=== PATIENT | female | born 2000 | race African-American/Black ===

== ENCOUNTER 2021-05-22 10:10 | Emergency (ER) | payer MEDICAID ==
[~2021-05-22] VITALS: Ht 157.5 cm; Wt 65.9 kg
[2021-05-22 11:12] LABS: STREP SCREEN NEGATIVE
[2021-05-22] MEDS ORDERED: MAGIC MOUTH PO (11:47)
[2021-05-22 12:15] VITALS: BP 129/85; PULSE 127; TEMP 99.5
== END 2021-05-22 12:30 | disposition home or self-care (01) ==
LOC: COL.ER 10:10
PROVIDERS: Nurse Practitioner Primary Care
DX: J03.90 Acute tonsillitis, unspecified (principal); Z20.822 Contact with and (suspected) exposure to COVID-19